=== PATIENT | female | born 1950 | race Caucasian/White ===

== ENCOUNTER 2024-04-07 11:58 | Emergency (ER) | payer MEDICARE, SELFPAY ==
[2024-04-07 12:01] VITALS: BP 154/69; PULSE 60; TEMP 36.6; O2SAT 97; BMI 37.3
--- NOTE | 2024-04-07 12:22 | ED.GENADUL1 ---
HPI HPI - General Adult General Chief complaint: Skin/Abscess/Foreign Body Stated complaint: LACERATION Time Seen by Provider: 04/07/24 12:22 Source: patient Mode of arrival: walk-in History of Present Illness HPI narrative: Patient was to the department for evaluation of left index finger laceration. Patient states that she was working with a small hand chainsaw, it skipped on the piece of what she was cutting, and went and cut the left index finger. States she can feel everything, has full range of motion, she does want Steri-Strips and to go home. States she had a tetanus shot approximately 1 year ago. Has no numbness, tingling, weakness to the finger. No other complaints at this time Related Data Allergies Allergy/AdvReac Type Severity Reaction Status Date / Time atorvastatin [From Lipitor] Allergy Severe Cough Verified 04/07/24 12:07 erythromycin base Allergy Severe Anaphylaxis Verified 04/07/24 12:07 Iodinated Contrast Media AdvReac Severe Anaphylaxis Verified 04/07/24 12:07 Latex, Natural Rubber AdvReac Severe rash Verified 04/07/24 12:07 Opioid HPI Opioid Management Most Recent Opioid Data: No Data to Display Review of Systems ROS Narrative Negative unless otherwise stated in the HPI PFSH PFSH Social History Little interest or pleasure in doing things: not at all Feeling down, depressed, or hopeless: not at all Exam Narrative Exam Narrative: General: NAD, AAOx3, no distress Ext: Left index finger was 1 cm laceration, exposed, no tendon laceration, no tendon involvement, has full extension, is over the posterior index finger, normal cap refill, sensation and motor Constitutional Vital Signs, click to edit/add: Last Vital Signs Temp 98 F 04/07/24 12:01 Pulse 60 04/07/24 12:01 Resp 18 04/07/24 12:01 BP 154/69 H 04/07/24 12:01 Pulse Ox 97 04/07/24 12:01 O2 Del Method Room Air 04/07/24 12:01 Course Vital Signs Vital signs: Vital Signs Temperature 98 F 04/07/24 12:01 Pulse Rate 60 04/07/24 12:01 Respiratory Rate 18 04/07/24 12:01 Blood Pressure 154/69 H 04/07/24 12:01 Pulse Oximetry 97 04/07/24 12:01 Oxygen Delivery Method Room Air 04/07/24 12:01 Temperature 98 F 04/07/24 12:01 Pulse Rate 60 04/07/24 12:01 Respiratory Rate 18 04/07/24 12:01 Blood Pressure 154/69 H 04/07/24 12:01 Pulse Oximetry 97 04/07/24 12:01 Oxygen Delivery Method Room Air 04/07/24 12:01 Medical Decision Making MDM Narrative Medical decision making narrative: Pt who presented today for laceration. Patient on exam was well appearin. Wound explored, no evidence of foreign body.Patient was neurovascularly intact intact without evidence of tendon involvement. Wound was sutured without difficulty as per primary procedure note. Tdap was up to date as of 1 year ago . Patient was discharged with follow up in stable condition Advanced guidance has been given. Vss, pex is benign at this time. Pt to fu with pcp 1-2 days for reeval, rter should sx worsen, persist or become worrysome in any way. Pt expressed understanding and agreement with plan of care at this time. Will fu as planned. Pt stable for discharge. Medical Records Medical records reviewed: Yes I reviewed the patient's medical records Discharge Plan Discharge Chief Complaint: Skin/Abscess/Foreign Body Clinical Impression: Laceration Patient Disposition: Home, Self-Care Time of Disposition Decision: 13:13 Condition: Good Print Language: [place]itanian Instructions: Finger Laceration (ED) Additional Instructions: Follow-up with your PCP in the next 1 to 2 days. Return to the emergency department should symptoms worsen or become worrisome in any way. Follow-up for suture removal in 7 to 10 days. Referrals: Physician,Non-Staff, MD [Primary Care Provider] - 1 week Procedures ED Nerve Block Nerve Block Nerve Block 1: Time out performed: Yes Local anesthetic used: lidocaine 1% Location of anesthetic used: Left index finger medial and lateral digital nerves Amount of anesthesia used (mL): 3 Patient tolerated procedure: well and no complications ED Laceration Laceration Laceration 1: Site: hand Side (if applicable): left Size (cm): 1 Description: linear and irregular Depth: simple, single layer Anesthetic used: lidocaine 1% Anesthesia technique: nerve block Amount (ml): 3 Pre-repair: wound explored, irrigated extensively and deep structures intact Skin layer closed with: other (Nylon) Size (cm): 5-0 Number of sutures: 6 Technique: simple, interrupted
[2024-04-07] MEDS: LIDOCAINE HCL 1% 100 MG/10 ML MDV INJ (12:44)
== END 2024-04-07 13:22 | disposition home or self-care (01) ==
PROVIDERS: Emergency Provider Emergency Medicine
DX: S61.211A Laceration without foreign body of left index finger without damage to nail, initial encounter (principal); W29.3XXA Contact with powered garden and outdoor hand tools and machinery, initial encounter
CPT/HCPCS: 12011; 99284